=== PATIENT | female | born 1925 | race Caucasian/White ===

== ENCOUNTER 2016-07-15 10:42 | Outpatient (CLI) ==
[2015-08-02 07:41] VITALS: BMI 33.2
== END 2016-07-15 10:43 | disposition home or self-care (01) ==
LOC: NONPT 10:42
PROVIDERS: ATTEND Family Medicine
DX: R68.89 Other general symptoms and signs (principal)

== ENCOUNTER 2016-07-15 20:22 | Outpatient (CLI) ==
[2015-08-02 07:41] VITALS: BMI 33.2
[2016-07-15 20:43] LABS: FLU INTERNAL QC INTERNAL QC VALID; RAPID FLU A NEGATIVE (NEGATIVE); RAPID FLU B NEGATIVE (NEGATIVE)
== END 2016-07-15 20:23 | disposition home or self-care (01) ==
LOC: NONPT 20:22
PROVIDERS: ATTEND Family Medicine
DX: R68.89 Other general symptoms and signs (principal)
CPT/HCPCS: 87804